=== PATIENT | female | born 1970 | race Caucasian/White ===

== ENCOUNTER → 2017-03-03 13:06 | Outpatient (CLI) | payer OTHER ==
[~2017-03-03 13:06] MED LIST: AVALIDE 300/12.1 TAB; GLIPIZIDE10 MG PO; JANUMET 50-1,01 EACH; LIPITOR20 MG; LODINE300 MG PO; METFORMIN HCL1000 M1; NEURONTIN300 MG PO; SYNTHROID75 MCG PO; TIZANIDINE HCL2 MG PO; TOPROL XL100 M1
== END | disposition home or self-care (01) ==
LOC: PPHC 02-24 13:00 → NUTRICION 13:06
DX: E78.1 Pure hyperglyceridemia (principal); E11.69 Type 2 diabetes mellitus with other specified complication; E66.8 Other obesity

== ENCOUNTER 2017-09-11 10:43 | Outpatient (CLI) | payer OTHER | END 2017-09-11 10:50 | disposition home or self-care (01) | LOC: LAB 10:43 | DX: E11.65 Type 2 diabetes mellitus with hyperglycemia (principal); E78.00 Pure hypercholesterolemia, unspecified; E89.0 Postprocedural hypothyroidism; D68.8 Other specified coagulation defects; E11.9 Type 2 diabetes mellitus without complications ==

== ENCOUNTER → 2017-11-14 11:30 | Outpatient (CLI) | payer OTHER | END | disposition home or self-care (01) | LOC: RAD 11:30 | DX: M25.561 Pain in right knee (principal); M25.562 Pain in left knee ==

== ENCOUNTER 2018-04-13 08:51 | Outpatient (CLI) | payer OTHER | END 2018-04-13 08:54 | disposition home or self-care (01) | LOC: LAB 08:51 | DX: E11.69 Type 2 diabetes mellitus with other specified complication (principal); E78.00 Pure hypercholesterolemia, unspecified; E13.21 Other specified diabetes mellitus with diabetic nephropathy ==

== ENCOUNTER → 2018-07-01 12:33 | Outpatient (CLI) | payer OTHER | END | disposition home or self-care (01) | LOC: LAB 12:33 | DX: M79.18 Myalgia, other site (principal); R70.0 Elevated erythrocyte sedimentation rate ==

== ENCOUNTER → 2018-07-01 | Outpatient (CLI) | payer OTHER | END | disposition home or self-care (01) | LOC: NUCLEAR 13:00 | DX: M81.0 Age-related osteoporosis without current pathological fracture (principal) ==

== ENCOUNTER 2018-10-02 10:09 | Outpatient (CLI) | payer OTHER | END 2018-10-02 15:00 | disposition home or self-care (01) | LOC: LAB 10:09 | DX: E03.8 Other specified hypothyroidism (principal); E78.00 Pure hypercholesterolemia, unspecified; I11.9 Hypertensive heart disease without heart failure; E11.9 Type 2 diabetes mellitus without complications ==

== ENCOUNTER 2018-12-31 09:30 | Outpatient (CLI) | payer OTHER | END 2018-12-31 09:35 | disposition home or self-care (01) | LOC: LAB 09:30 | DX: N91.1 Secondary amenorrhea (principal); E03.8 Other specified hypothyroidism; E11.65 Type 2 diabetes mellitus with hyperglycemia ==

== ENCOUNTER 2018-12-31 10:08 | Outpatient (CLI) | payer OTHER | END 2018-12-31 10:16 | disposition home or self-care (01) | LOC: MAMO-SONO 10:08 | DX: Z12.31 Encounter for screening mammogram for malignant neoplasm of breast (principal); Z87.898 Personal history of other specified conditions; N64.4 Mastodynia; N63.10 Unspecified lump in the right breast, unspecified quadrant; N63.20 Unspecified lump in the left breast, unspecified quadrant; N60.11 Diffuse cystic mastopathy of right breast ==

== ENCOUNTER 2019-02-07 09:19 | Outpatient (CLI) | payer OTHER | END 2019-02-07 09:35 | disposition home or self-care (01) | LOC: NUCLEAR 09:19 | DX: K31.89 Other diseases of stomach and duodenum (principal); R10.13 Epigastric pain | CPT/HCPCS: 78264; A9541 ==

== ENCOUNTER 2019-02-24 13:01 | Emergency (ER) | payer OTHER ==
[~2019-02-24] VITALS: Ht 167.6 cm; Wt 88.5 kg
[2019-02-24] MEDS ORDERED: LANTUS SOL100 UNIT/1 (13:47)
[2019-02-24] MEDS ORDERED: VICTOZA 3-0.6 MG/0.1 (13:47)
[2019-02-24] MEDS ORDERED: GLUCOTROL XL PO (13:49)
== END 2019-02-24 17:21 | disposition home or self-care (01) ==
LOC: ER 13:01
DX: J03.90 Acute tonsillitis, unspecified (principal)

== ENCOUNTER → 2019-04-16 09:52 | Outpatient (CLI) | payer OTHER ==
[~2019-04-16 09:52] MED LIST changes: +GLUCOTROL XL PO; +LANTUS SOL100 UNIT/1; +VICTOZA 3-0.6 MG/0.1
== END | disposition home or self-care (01) ==
LOC: LAB 09:52
DX: E11.69 Type 2 diabetes mellitus with other specified complication (principal); E78.00 Pure hypercholesterolemia, unspecified; I11.9 Hypertensive heart disease without heart failure; E03.8 Other specified hypothyroidism; M79.18 Myalgia, other site; R76.0 Raised antibody titer; R70.0 Elevated erythrocyte sedimentation rate; K21.9 Gastro-esophageal reflux disease without esophagitis; K30 Functional dyspepsia; R19.7 Diarrhea, unspecified

== ENCOUNTER 2019-04-19 09:02 | Outpatient (CLI) | payer OTHER | END 2019-04-19 09:10 | disposition home or self-care (01) | LOC: LAB 09:02 | DX: K21.9 Gastro-esophageal reflux disease without esophagitis (principal); K30 Functional dyspepsia; R19.8 Other specified symptoms and signs involving the digestive system and abdomen ==

== ENCOUNTER → 2019-09-03 09:36 | Outpatient (CLI) | payer OTHER | END | disposition home or self-care (01) | LOC: LAB 09:36 | PROVIDERS: ATTEND Internal Medicine | DX: E03.8 Other specified hypothyroidism (principal); I11.9 Hypertensive heart disease without heart failure; E78.49 Other hyperlipidemia; E11.65 Type 2 diabetes mellitus with hyperglycemia ==

== ENCOUNTER 2020-04-26 11:18 | Outpatient (CLI) | payer OTHER | END 2020-04-26 11:28 | disposition home or self-care (01) | LOC: LAB 11:18 | PROVIDERS: ATTEND Radiology Diagnostic Radiology | DX: M62.89 Other specified disorders of muscle (principal); E10.42 Type 1 diabetes mellitus with diabetic polyneuropathy; G43.009 Migraine without aura, not intractable, without status migrainosus; G62.89 Other specified polyneuropathies; R20.2 Paresthesia of skin; E03.8 Other specified hypothyroidism; N20.0 Calculus of kidney ==

== ENCOUNTER 2020-05-07 07:45 | Outpatient (CLI) | payer OTHER | END 2020-05-07 08:07 | disposition home or self-care (01) | LOC: MRI 07:45 | PROVIDERS: ATTEND Neuromusculoskeletal Medicine & OMM | DX: M51.36 Other intervertebral disc degeneration, lumbar region (principal); M51.26 Other intervertebral disc displacement, lumbar region; D49.6 Neoplasm of unspecified behavior of brain; G43.009 Migraine without aura, not intractable, without status migrainosus | CPT/HCPCS: 70553; 72148 ==

== ENCOUNTER 2020-07-31 12:21 | Emergency (ER) | payer OTHER ==
[~2020-07-31] VITALS: Ht 167.6 cm; Wt 83.9 kg
[2020-07-31] MEDS ORDERED: GLUMETZA1000 MG (12:47)
[2020-07-31] MEDS ORDERED: LYRICA100 MG (12:47)
== END 2020-07-31 15:26 | disposition home or self-care (01) ==
LOC: ER 12:21
DX: M54.5 Low back pain (principal)

== ENCOUNTER 2021-04-26 10:02 | Emergency (ER) | payer OTHER ==
[~2021-04-26] VITALS: Ht 167.6 cm; Wt 77.1 kg
[~2021-04-26 10:02] MED LIST changes: +GLUMETZA1000 MG; +LYRICA100 MG
[2021-04-26] MEDS ORDERED: OZEMPIC1 MG/0.71 SQ (10:11)
[2021-04-26] MEDS ORDERED: PROTONIX20 MG (10:12)
[2021-04-26] MEDS ORDERED: REGLAN5 MG/5 ML (10:12)
[2021-04-26] MEDS ORDERED: PEPCID AC20 MG PO (14:28)
[2021-04-26] MEDS ORDERED: INTESTINEX680 M1 PO (14:28)
[2021-04-26] MEDS ORDERED: ZITHROMAX200 MG PO (14:28)
[2021-04-26] MEDS ORDERED: LEVSIN/SL0.125 MG SL (14:36)
== END 2021-04-26 14:44 | disposition home or self-care (01) ==
LOC: ER 10:02
DX: R19.7 Diarrhea, unspecified (principal)

== ENCOUNTER 2021-07-27 10:16 | Outpatient (CLI) | payer OTHER ==
[~2021-07-27 10:16] MED LIST changes: +INTESTINEX680 M1 PO; +LEVSIN/SL0.125 MG SL; +OZEMPIC1 MG/0.71 SQ; +PEPCID AC20 MG PO; +PROTONIX20 MG; +REGLAN5 MG/5 ML; +ZITHROMAX200 MG PO
== END 2021-07-27 10:20 | disposition home or self-care (01) ==
LOC: LAB 10:16
DX: E03.8 Other specified hypothyroidism (principal); E11.65 Type 2 diabetes mellitus with hyperglycemia; E78.2 Mixed hyperlipidemia; I10 Essential (primary) hypertension

== ENCOUNTER 2021-08-29 10:08 | Outpatient (CLI) | payer OTHER | END 2021-08-29 13:33 | disposition home or self-care (01) | LOC: MRI 10:08 | DX: M54.50 Low back pain, unspecified (principal) | CPT/HCPCS: 72158 ==

== ENCOUNTER 2021-10-25 10:41 | Outpatient (CLI) | payer OTHER | END 2021-10-25 10:47 | disposition home or self-care (01) | LOC: MRI 10:41 | PROVIDERS: ATTEND Neuromusculoskeletal Medicine & OMM | DX: M50.20 Other cervical disc displacement, unspecified cervical region (principal); M50.30 Other cervical disc degeneration, unspecified cervical region | CPT/HCPCS: 72141 ==

== ENCOUNTER 2021-11-25 09:49 | Outpatient (CLI) | payer OTHER | END 2021-11-25 09:50 | disposition home or self-care (01) | LOC: LAB 09:49 | PROVIDERS: ATTEND Internal Medicine Endocrinology, Diabetes & Metabolism | DX: E03.8 Other specified hypothyroidism (principal); E11.65 Type 2 diabetes mellitus with hyperglycemia; E78.2 Mixed hyperlipidemia; I10 Essential (primary) hypertension ==

== ENCOUNTER 2022-04-19 10:24 | Outpatient (CLI) | payer OTHER | END 2022-04-19 10:25 | disposition home or self-care (01) | LOC: LAB 10:24 | PROVIDERS: ATTEND Internal Medicine Endocrinology, Diabetes & Metabolism | DX: E03.8 Other specified hypothyroidism (principal); E78.2 Mixed hyperlipidemia; I10 Essential (primary) hypertension; E11.65 Type 2 diabetes mellitus with hyperglycemia; N92.6 Irregular menstruation, unspecified; R79.89 Other specified abnormal findings of blood chemistry ==

== ENCOUNTER 2022-07-12 10:44 | Outpatient (CLI) | payer OTHER | END 2022-07-12 10:48 | disposition home or self-care (01) | LOC: LAB 10:44 | PROVIDERS: ATTEND Internal Medicine Endocrinology, Diabetes & Metabolism | DX: E11.9 Type 2 diabetes mellitus without complications (principal); E78.2 Mixed hyperlipidemia; I10 Essential (primary) hypertension; E03.8 Other specified hypothyroidism ==

== ENCOUNTER 2022-10-17 10:20 | Outpatient (CLI) | payer OTHER | END 2022-10-17 10:25 | disposition home or self-care (01) | LOC: SONOGRAMA 10:20 | PROVIDERS: ATTEND Internal Medicine Endocrinology, Diabetes & Metabolism | DX: E04.2 Nontoxic multinodular goiter (principal) ==

== ENCOUNTER 2022-10-18 07:48 | Outpatient (CLI) | payer OTHER | END 2022-10-18 07:49 | disposition home or self-care (01) | LOC: LAB 07:48 | PROVIDERS: ATTEND Internal Medicine Endocrinology, Diabetes & Metabolism | DX: E78.2 Mixed hyperlipidemia (principal); I10 Essential (primary) hypertension; E03.8 Other specified hypothyroidism ==

== ENCOUNTER 2023-01-17 09:11 | Outpatient (CLI) | payer OTHER ==
[2023-01-17 10:22] LABS: PH,URINE 5.5 (5.0-8.0); URINE APPEARANCE Clear; URINE BILIRRUBIN Negative (NEGATIVE); URINE BLOOD Negative; URINE COLOR Yellow; URINE LEUKOCYTE Negative; URINE NITRATE Positive; URINE PROTEIN Negative (NEGATIVE); URINE UROBILINOGEN 0.2 E.U./dl
[2023-01-17 10:25] LABS: URINE EPITHELIAL CELLS 26.1 uL (0.0-38.8); URINE RBC 6.8 uL (0.0-20.8); URINE WBC 46.2 uL (0.0-23.2)
[2023-01-17 10:48] LABS: HEMATOCRIT 35.7 % (36.0-45.00); HEMOGLOBIN 11.7 g/dL (12.0-15.00); MEAN CELL VOLUME 78.5 fL (80.00-100.00); MEAN CORPUSCULAR HEMOGLOBIN 25.7 pg (27.00-32.0); MEAN CORPUSCULAR HGB CONC 32.7 g/dl (32.0-36.0); PLATELET COUNT 333 K/uL (150-450); RED BLOOD COUNT 4.55 M/uL (4.00-6.00); RED CELL DISTRIBUTION WIDTH 16.3 % (11.5-14.5)
[2023-01-17 10:50] LABS: URINE BACTERIA > 9821.5 uL (0.0-1933); URINE GLUCOSE >=1000 MG/DL (NEGATIVE)
[2023-01-17 11:14] LABS: ALBUMIN 3.8 gm/dL (3.4-5.0); BILIRUBIN TOTAL 0.58 mg/dL (0.3-1.2); CALCIUM 9.1 mg/dL (8.5-10.1); CHOL HDL RATIO 3.4 (0-5.0); CREATININE SERUM 0.61 mg/dL (0.55-1.02); GFR 103.82; GLOBULINA 3.3 G/DL (2.4-3.5); POTASSIUM 4.67 mEq/L (3.5-5.1); TOTAL PROTEIN 7.1 gm/dL (6.4-8.2); TSH 1.13 uIU/mL (0.358-3.74)
== END 2023-01-17 09:12 | disposition home or self-care (01) ==
LOC: LAB 09:11
PROVIDERS: ATTEND Internal Medicine Endocrinology, Diabetes & Metabolism
DX: E03.8 Other specified hypothyroidism (principal); E11.65 Type 2 diabetes mellitus with hyperglycemia; E78.2 Mixed hyperlipidemia; I10 Essential (primary) hypertension

== ENCOUNTER 2023-04-25 09:22 | Outpatient (CLI) | payer OTHER ==
[2023-04-25 10:21] LABS: PH,URINE 5.5 (5.0-8.0); URINE APPEARANCE Clear; URINE BILIRRUBIN Negative (NEGATIVE); URINE BLOOD Negative; URINE COLOR Yellow; URINE LEUKOCYTE Negative; URINE NITRATE Positive; URINE PROTEIN Negative (NEGATIVE); URINE UROBILINOGEN 0.2 E.U./dl
[2023-04-25 10:22] LABS: HEMATOCRIT 35.4 % (36.0-45.00); HEMOGLOBIN 11.5 g/dL (12.0-15.00); MEAN CELL VOLUME 77.9 fL (80.00-100.00); MEAN CORPUSCULAR HEMOGLOBIN 25.4 pg (27.00-32.0); MEAN CORPUSCULAR HGB CONC 32.6 g/dl (32.0-36.0); PLATELET COUNT 364 K/uL (150-450); RED BLOOD COUNT 4.54 M/uL (4.00-6.00); RED CELL DISTRIBUTION WIDTH 17.4 % (11.5-14.5)
[2023-04-25 10:27] LABS: URINE BACTERIA 4782.8 uL (0.0-1933); URINE EPITHELIAL CELLS 16.3 uL (0.0-38.8); URINE RBC 9.3 uL (0.0-20.8); URINE WBC 11.2 uL (0.0-23.2)
[2023-04-25 10:36] LABS: URINE GLUCOSE >=1000 MG/DL (NEGATIVE)
[2023-04-25 11:38] LABS: BILIRUBIN TOTAL 0.61 mg/dL (0.3-1.2); CALCIUM 9.3 mg/dL (8.5-10.1); CHOL HDL RATIO 3.2 (0-5.0); CREATININE SERUM 0.67 mg/dL (0.55-1.02); GFR 92.79; GLOBULINA 3.5 G/DL (2.4-3.5); POTASSIUM 4.35 mEq/L (3.5-5.1); TOTAL PROTEIN 7.5 gm/dL (6.4-8.2); TSH 0.466 uIU/mL (0.358-3.74)
== END 2023-04-25 09:23 | disposition home or self-care (01) ==
LOC: LAB 09:22
PROVIDERS: ATTEND Internal Medicine Endocrinology, Diabetes & Metabolism
DX: E03.8 Other specified hypothyroidism (principal); E11.65 Type 2 diabetes mellitus with hyperglycemia; E78.2 Mixed hyperlipidemia; I10 Essential (primary) hypertension

== ENCOUNTER 2023-05-13 11:08 | Outpatient (CLI) | payer OTHER | END 2023-05-13 11:14 | disposition home or self-care (01) | LOC: MAMO-SONO 11:08 | PROVIDERS: ATTEND Obstetrics & Gynecology | DX: N60.22 Fibroadenosis of left breast (principal); N60.21 Fibroadenosis of right breast; Z12.31 Encounter for screening mammogram for malignant neoplasm of breast ==

== ENCOUNTER 2023-05-13 13:00 | Outpatient (CLI) | payer OTHER | END 2023-05-13 13:01 | disposition home or self-care (01) | LOC: NUCLEAR 13:00 | PROVIDERS: ATTEND Obstetrics & Gynecology | DX: M81.0 Age-related osteoporosis without current pathological fracture (principal) ==

== ENCOUNTER 2023-11-07 09:21 | Outpatient (CLI) | payer OTHER ==
[~2023-11-07 09:21] MED LIST changes: +NABUMETONE750 MG PO; +NORFLEX100MG PO
[2023-11-07 10:52] LABS: URINE APPEARANCE Clear; URINE BILIRRUBIN Negative (NEGATIVE); URINE BLOOD Negative; URINE COLOR Dark Yellow; URINE GLUCOSE Negative (NEGATIVE); URINE KETONE Trace (NEGATIVE); URINE LEUKOCYTE Moderate; URINE NITRATE Positive; URINE PROTEIN Negative (NEGATIVE)
[2023-11-07 10:59] LABS: URINE EPITHELIAL CELLS 11.5 uL (0.0-38.8); URINE RBC 3.8 uL (0.0-20.8); URINE WBC 157.5 uL (0.0-23.2)
[2023-11-07 11:02] LABS: HEMATOCRIT 33.1 % (36.0-45.00); HEMOGLOBIN 10.9 g/dL (12.0-15.00); MEAN CELL VOLUME 80.2 fL (80.00-100.00); MEAN CORPUSCULAR HEMOGLOBIN 26.4 pg (27.00-32.0); MEAN CORPUSCULAR HGB CONC 32.9 g/dl (32.0-36.0); PLATELET COUNT 320 K/uL (150-450); RED BLOOD COUNT 4.12 M/uL (4.00-6.00); RED CELL DISTRIBUTION WIDTH 17.1 % (11.5-14.5)
[2023-11-07 11:17] LABS: URINE BACTERIA > 9821.5 uL (0.0-1933)
[2023-11-07 11:32] LABS: ALBUMIN 3.6 gm/dL (3.4-5.0); BILIRUBIN TOTAL 0.67 mg/dL (0.3-1.2); CALCIUM 8.6 mg/dL (8.5-10.1); CHOL HDL RATIO 3.4 (0-5.0); CREATININE SERUM 0.5 mg/dL (0.55-1.02); GFR 130.07; GLOBULINA 3.3 G/DL (2.4-3.5); POTASSIUM 4.24 mEq/L (3.5-5.1); TOTAL PROTEIN 6.9 gm/dL (6.4-8.2); TSH 0.7 uIU/mL (0.358-3.74)
== END 2023-11-07 09:22 | disposition home or self-care (01) ==
LOC: LAB 09:21
PROVIDERS: ATTEND Internal Medicine Endocrinology, Diabetes & Metabolism
DX: E78.2 Mixed hyperlipidemia (principal); I10 Essential (primary) hypertension; E03.8 Other specified hypothyroidism

== ENCOUNTER → 2024-04-16 09:28 | Outpatient (CLI) | payer OTHER ==
[2024-04-16 10:37] LABS: PH,URINE 5.5 (5.0-8.0); URINE BILIRRUBIN Negative (NEGATIVE); URINE BLOOD Negative; URINE COLOR Yellow; URINE GLUCOSE Negative (NEGATIVE); URINE KETONE Trace (NEGATIVE); URINE LEUKOCYTE Negative; URINE NITRATE Positive; URINE PROTEIN Negative (NEGATIVE); URINE UROBILINOGEN 0.2 E.U./dl
[2024-04-16 10:38] LABS: URINE EPITHELIAL CELLS 15.3 uL (0.0-38.8); URINE RBC 2.9 uL (0.0-20.8); URINE WBC 31.9 uL (0.0-23.2)
[2024-04-16 10:46] LABS: HEMOGLOBIN 12.2 g/dL (12.0-15.00); MEAN CELL VOLUME 86.1 fL (80.00-100.00); MEAN CORPUSCULAR HEMOGLOBIN 29.1 pg (27.00-32.0); MEAN CORPUSCULAR HGB CONC 33.8 g/dl (32.0-36.0); PLATELET COUNT 305 K/uL (150-450); RED BLOOD COUNT 4.18 M/uL (4.00-6.00); RED CELL DISTRIBUTION WIDTH 13.4 % (11.5-14.5)
[2024-04-16 10:47] LABS: URINE BACTERIA > 9821.5 uL (0.0-1933); URINE CAST 0.44 uL (0.0-1.40)
[2024-04-16 10:48] LABS: URINE APPEARANCE SL CLOUDY
[2024-04-16 11:20] LABS: ALBUMIN 3.5 gm/dL (3.4-5.0); BILIRUBIN TOTAL 0.51 mg/dL (0.3-1.2); CALCIUM 8.7 mg/dL (8.5-10.1); CHOL HDL RATIO 5.5 (0-5.0); CREATININE SERUM 0.55 mg/dL (0.55-1.02); GFR 116.07; GLOBULINA 3.3 G/DL (2.4-3.5); POTASSIUM 4.1 mEq/L (3.5-5.1); TOTAL PROTEIN 6.8 gm/dL (6.4-8.2); TSH 0.934 uIU/mL (0.358-3.74)
== END | disposition home or self-care (01) ==
LOC: LAB 09:28
PROVIDERS: ATTEND Internal Medicine Endocrinology, Diabetes & Metabolism
DX: E03.8 Other specified hypothyroidism (principal); E11.65 Type 2 diabetes mellitus with hyperglycemia; E78.2 Mixed hyperlipidemia; I10 Essential (primary) hypertension

== ENCOUNTER 2024-04-25 10:46 | Outpatient (CLI) | payer OTHER ==
[~2024-04-25 10:46] MED LIST changes: +MELOXICAM15 MG PO
== END 2024-04-25 10:54 | disposition home or self-care (01) ==
LOC: SONOGRAMA 10:46
PROVIDERS: ATTEND Physical Medicine & Rehabilitation
DX: M25.512 Pain in left shoulder (principal)

== ENCOUNTER 2024-08-09 08:47 | Outpatient (CLI) | payer OTHER ==
[2024-08-09 09:39] LABS: BASO % 0.7 % (0.1-1.2); EOS # 0.17 (0.04-0.54); EOS % 2.8 % (0.7-7.0); HEMOGLOBIN 11.9 g/dL (11.2-15.7); LYMPH # 2.12 (1.18-3.74); LYMPH % 34.5 % (19.3-53.1); MEAN CORPUSCULAR HEMOGLOBIN 27.8 pg (25.6-32.2); MONO # 0.47 (0.24-0.82); MONO % 7.7 % (4.7-12.5); NEUT # 3.33 (1.56-6.13); NEUT % 54.1 % (34.0-71.1); PLATELET COUNT 323 K/uL (163-369); RED BLOOD COUNT 4.28 M/uL (3.93-5.22); RED CELL DISTRIBUTION WIDTH 13.3 % (11.6-14.4)
[2024-08-09 09:43] LABS: URINE APPEARANCE Clear; URINE BILIRRUBIN Negative (NEGATIVE); URINE BLOOD Negative; URINE COLOR Yellow; URINE GLUCOSE Negative (NEGATIVE); URINE KETONE Negative (NEGATIVE); URINE LEUKOCYTE Negative; URINE NITRATE Negative; URINE PROTEIN Negative (NEGATIVE); URINE UROBILINOGEN 0.2 E.U./dl
[2024-08-09 09:47] LABS: URINE BACTERIA 3118.6 uL (0.0-1933); URINE EPITHELIAL CELLS 23.7 uL (0.0-38.8); URINE RBC 3.9 uL (0.0-20.8); URINE WBC 42.4 uL (0.0-23.2)
[2024-08-09 10:09] LABS: URINE CAST 0.73 uL (0.0-1.40)
[2024-08-09 10:19] LABS: ALBUMIN 3.8 gm/dL (3.4-5.0); BILIRUBIN TOTAL 0.82 mg/dL (0.3-1.2); CALCIUM 9.3 mg/dL (8.5-10.1); CHOL HDL RATIO 3.4 (0-5.0); CREATININE SERUM 0.57 mg/dL (0.55-1.02); GFR 111.38; GLOBULINA 3.4 G/DL (2.4-3.5); POTASSIUM 4.48 mEq/L (3.5-5.1); TOTAL PROTEIN 7.2 gm/dL (6.4-8.2); TSH 1.68 uIU/mL (0.358-3.74)
[2024-08-10 09:11] LABS: INSULIN LEVELS 22.3 uIU/mL (2.6-24.9); PROGESTERONA 0.4 ng/mL (.); PROLACTIN 6.1 ng/mL (3.6-25.2)
[2024-08-10 13:12] LABS: ESTRADIOL SERUM 23.9 pg/mL (.)
== END 2024-08-09 08:56 | disposition home or self-care (01) ==
LOC: LAB 08:47
PROVIDERS: ATTEND Internal Medicine Endocrinology, Diabetes & Metabolism
DX: E78.2 Mixed hyperlipidemia (principal); E03.8 Other specified hypothyroidism; I10 Essential (primary) hypertension; N95.1 Menopausal and female climacteric states; E22.1 Hyperprolactinemia; E16.1 Other hypoglycemia; E27.8 Other specified disorders of adrenal gland; R79.89 Other specified abnormal findings of blood chemistry; R79.0 Abnormal level of blood mineral

== ENCOUNTER 2024-11-12 09:38 | Outpatient (CLI) | payer OTHER ==
[2024-11-12 10:21] LABS: BASO % 0.8 % (0.1-1.2); EOS # 0.14 (0.04-0.54); EOS % 2.2 % (0.7-7.0); LYMPH # 2.11 (1.18-3.74); LYMPH % 33.3 % (19.3-53.1); MEAN PLATELET VOLUME 10.40 fl (9.4-12.4); MONO # 0.57 (0.24-0.82); MONO % 9.0 % (4.7-12.5); NEUT # 3.46 (1.56-6.13); NEUT % 54.5 % (34.0-71.1); RED CELL DISTRIBUTION WIDTH 12.5 % (11.6-14.4)
[2024-11-12 10:23] LABS: URINE APPEARANCE Clear; URINE BILIRRUBIN Negative (NEGATIVE); URINE BLOOD Negative; URINE COLOR Yellow; URINE KETONE Negative (NEGATIVE); URINE LEUKOCYTE Small; URINE NITRATE Positive; URINE PROTEIN Negative (NEGATIVE); URINE UROBILINOGEN 0.2 E.U./dl
[2024-11-12 10:27] LABS: URINE EPITHELIAL CELLS 6.9 uL (0.0-38.8); URINE RBC 3.5 uL (0.0-20.8); URINE WBC 61.3 uL (0.0-23.2)
[2024-11-12 10:32] LABS: URINE BACTERIA > 9821.5 uL (0.0-1933); URINE CAST 0.29 uL (0.0-1.40); URINE GLUCOSE >=1000 MG/DL (NEGATIVE)
[2024-11-12 11:14] LABS: ALT/SGPT 26.0 U/L (12-78); AST/SGOT 17.0 U/L (15-37); BILIRUBIN TOTAL 0.44 mg/dL (0.3-1.2); BUN CREA RATIO 17.0 (7.0-25.0); CHOL HDL RATIO 4.9 (0-5.0); CREATININE SERUM 0.72 mg/dL (0.55-1.02); GFR 85.06; GLOBULINA 3.5 G/DL (2.4-3.5); HDL 34.0 mg/dl (40-60); LDL 94.0 mg/dl (0-130); OSMOLALITY SERUM 286.0 MOSM/KG (275-295); VLDL 39.0 (0-39)
[2024-11-12 11:17] LABS: GLUCOSE FASTING 261.0 mg/dL (65-100)
== END 2024-11-12 09:39 | disposition home or self-care (01) ==
LOC: LAB 09:38
DX: E78.2 Mixed hyperlipidemia (principal); E03.8 Other specified hypothyroidism; E11.9 Type 2 diabetes mellitus without complications